=== PATIENT | female | born 1975 | race Asian ===

== ENCOUNTER → 2024-06-04 12:50 | Outpatient (REF) | payer OTHER, SELFPAY | LOC: PAVMRI 12:50 | PROVIDERS: ATTENDING PHYSICIAN Internal Medicine; REFERRING PHYSICIAN Specialist | DX: R53.83 Other fatigue (principal); R42 Dizziness and giddiness; M62.838 Other muscle spasm | CPT/HCPCS: 70553; A9575 ==

== ENCOUNTER → 2024-10-13 13:54 | Outpatient (REF) | payer OTHER, SELFPAY | LOC: HWWDC 13:54 | PROVIDERS: ATTENDING PHYSICIAN Internal Medicine; REFERRING PHYSICIAN Obstetrics & Gynecology | DX: Z12.31 Encounter for screening mammogram for malignant neoplasm of breast (principal) | CPT/HCPCS: 77063; 77067 ==